=== PATIENT | male | born 1965 | race Caucasian/White ===

== ENCOUNTER 2023-04-22 10:26 | Emergency (ER) | payer OTHER ==
[2023-04-22 10:36] VITALS: BMI 28.1
[2023-04-22 11:28] LABS: HEMATOCRIT 41.4 % (35.4-49); HEMOGLOBIN 13.9 GM/dL (11.7-16.9); MCH 28.2 pg (25.7-33.7); MCHC 33.6 g/dl (32.0-35.9); MEAN CELL VOLUME 83.9 fl (80-96); MEAN PLT VOLUME 8.6 fl (7.5-11.1); PLATELET COUNT 346 10^3/uL (134-434); RBC 4.93 M/mm3 (4.00-5.60); RDW 14.8 % (11.9-15.9); WHITE BLOOD COUNT 9.7 K/mm3 (4.0-10.0)
[2023-04-22 11:53] LABS: POTASSIUM 3.7 mmol/L (3.5-5.1)
[2023-04-22 11:55] LABS: ALBUMIN 2.7 g/dl (3.4-5.0); BLOOD UREA NITROGEN 14.8 mg/dL (7-18); CALCIUM 9.2 mg/dL (8.5-10.1)
[2023-04-22 11:58] LABS: CREATININE 1.4 mg/dL (0.55-1.3)
[2023-04-22 12:00] LABS: BILIRUBIN,TOTAL 1.3 mg/dL (0.2-1); TOT PROT 7.1 g/dl (6.4-8.2)
[2023-04-22 15:49] VITALS: BP 120/75; PULSE 85; RESP 18; TEMP 98
== END 2023-04-22 15:49 | disposition home or self-care (01) ==
LOC: JER 10:26
DX: S80.12XA Contusion of left lower leg, initial encounter (principal); S80.11XA Contusion of right lower leg, initial encounter; M79.661 Pain in right lower leg; Y99.9 Unspecified external cause status
CPT/HCPCS: 36415; 71046-TC-FY; 80053; 82550; 84484; 85027; 87040; 93005; 93010; 93970-TC; 99285-25

== ENCOUNTER 2023-05-18 10:52 | Inpatient (IN) | payer OTHER, MEDICARE ==
[2023-05-18 11:10] VITALS: BMI 28.1
[2023-05-18] MEDS ORDERED: LACTATED RINGERS SOLUTION 1000 ML INFUS.BAG IV ONE (11:35)
[2023-05-18 12:38] LABS: BASO % 0.4 % (0-2.0); EOS % 0.2 % (0-4.5); HEMATOCRIT 27.2 % (35.4-49); HEMOGLOBIN 8.3 GM/dL (11.7-16.9); LYMPH % 10.5 % (8-40); MCH 27.8 pg (25.7-33.7); MCHC 30.4 g/dl (32.0-35.9); MEAN CELL VOLUME 91.4 fl (80-96); MEAN PLT VOLUME 9.1 fl (7.5-11.1); MONO % 3.2 % (3.8-10.2); NEUT % 85.7 % (42.8-82.8); PLATELET COUNT 302 10^3/uL (134-434); RBC 2.98 M/mm3 (4.00-5.60); RDW 21.1 % (11.9-15.9); WHITE BLOOD COUNT 11.5 K/mm3 (4.0-10.0)
[2023-05-18 12:48] LABS: VENOUS BASE EXCESS -7.4 mmol/L (-2-2); VENOUS O2 SATURATION 16.6 % (70-80); VENOUS PCO2 25.9 mmHg (38-52); VENOUS PH 7.407 (7.310-7.410)
[2023-05-18 12:51] LABS: INR 1.95 (0.83-1.09); PROTHROMBIN TIME (PATIENT) 22.5 SEC (9.7-13.0)
[2023-05-18 12:53] LABS: ACTIVATED PTT 29.2 SECONDS (25.2-36.5)
[2023-05-18 12:54] LABS: CHLORIDE 103 mmol/L (98-107); SODIUM 131 mmol/L (136-145)
[2023-05-18 12:56] LABS: BLOOD UREA NITROGEN 71.6 mg/dL (7-18); CALCIUM 8.4 mg/dL (8.5-10.1)
[2023-05-18 12:58] LABS: ALBUMIN 2.6 g/dl (3.4-5.0); ANION GAP 13 MMOL/L (8-16); CO2 15 mmol/L (21-32); GLUCOSE,RANDOM 122 mg/dL (74-106); MAGNESIUM 2.7 mg/dL (1.8-2.4)
[2023-05-18 12:59] LABS: LIPASE 151 U/L (73-393)
[2023-05-18 13:00] LABS: CREATININE 2.1 mg/dL (0.55-1.3); SGOT/AST 13 U/L (15-37); SGPT/ALT 9 U/L (13-61)
[2023-05-18 13:02] LABS: BILIRUBIN,TOTAL 2.3 mg/dL (0.2-1); TOT PROT 6.8 g/dl (6.4-8.2)
[2023-05-18 13:03] LABS: ALK PHOS 100 U/L (45-117); N-TERMINAL BNP 11623.7 pg/ml (5-125)
[2023-05-18 13:14] LABS: LACTIC ACID 2.8 mmol/L (0.4-2.0)
[2023-05-18 13:18] LABS: ANISOCYTOSIS 3+; MACROCYTOSIS 1+; TARGET CELLS 1+
[2023-05-18 14:00] LABS: BILIRUBIN,DIRECT 0.9 mg/dL (0.0-0.2)
[2023-05-18 14:07] LABS: LDH 263 U/L (87-246)
[2023-05-18 14:29] LABS: RETICULOCYTES 7.55 % (0.5-1.5)
[2023-05-18 14:35] LABS: IRON SERUM 52 ug/dL (50-175)
[2023-05-18 14:36] LABS: TOTAL IRON BINDING CAPACITY 302 ug/dL (250-450)
[2023-05-18 15:10] LABS: LACTIC ACID 4.9 mmol/L (0.4-2.0)
[2023-05-18] MEDS ORDERED: SODIUM CHLORIDE 1,000 ML IV SCH (15:45)
[2023-05-18] MEDS ORDERED: LACTATED RINGERS SOLUTION 1,000 ML/1,000 ML INFUS.BAG IV SCH ×2 (15:45→16:30)
[2023-05-18] MEDS ORDERED: PANTOPRAZOLE SODIUM 40 MG VIAL ONE (18:00)
[2023-05-18] MEDS: PANTOPRAZOLE SODIUM 40 MG VIAL IVPUSH SCH (18:03)
[2023-05-18 20:36] LABS: EPI CELLS 3 /uL (0-25.1); HYALINE CASTS 1 /uL (0-3.1); URINE APPEARANCE CLEAR; URINE BILIRUBIN 1+ (NEGATIVE); URINE COLOR DK YELLOW; URINE GLUCOSE (UA) NEGATIVE (NEGATIVE); URINE KETONE NEGATIVE (NEGATIVE); URINE LEUK ESTERASE TRACE (NEGATIVE); URINE NITRITE POSITIVE (NEGATIVE); URINE PROTEIN NEGATIVE (NEGATIVE); URINE RBC 26 /uL (0-23.9); URINE WBC 9 /uL (0-25.8)
[2023-05-18 20:48] LABS: BASO % 0.8 % (0-2.0); EOS % 0.4 % (0-4.5); HEMATOCRIT 21.8 % (35.4-49); LYMPH % 38.4 % (8-40); MCH 28.5 pg (25.7-33.7); MCHC 31.7 g/dl (32.0-35.9); MEAN PLT VOLUME 8.7 fl (7.5-11.1); MONO % 6.8 % (3.8-10.2); NEUT % 53.6 % (42.8-82.8); PLATELET COUNT 216 10^3/uL (134-434); RBC 2.42 M/mm3 (4.00-5.60); RDW 20.7 % (11.9-15.9); WHITE BLOOD COUNT 5.3 K/mm3 (4.0-10.0)
[2023-05-18 20:55] LABS: HEMOGLOBIN 6.9 GM/dL (11.7-16.9)
[2023-05-18 21:25] LABS: ANISOCYTOSIS 2+; HELMET CELLS 1+; MACROCYTOSIS 0; PLATELET ESTIMATE NORMAL
[2023-05-18 23:40] LABS: URINE BACTERIA 1 /uL (0-1359)
[2023-05-19 07:24] LABS: BASO % 0.6 % (0-2.0); EOS % 0.4 % (0-4.5); HEMATOCRIT 28.5 % (35.4-49); HEMOGLOBIN 9.1 GM/dL (11.7-16.9); LYMPH % 38.7 % (8-40); MCH 29.6 pg (25.7-33.7); MCHC 32.1 g/dl (32.0-35.9); MEAN CELL VOLUME 92.4 fl (80-96); MEAN PLT VOLUME 9.5 fl (7.5-11.1); MONO % 5.5 % (3.8-10.2); NEUT % 54.8 % (42.8-82.8); PLATELET COUNT 237 10^3/uL (134-434); RBC 3.09 M/mm3 (4.00-5.60); RDW 19.2 % (11.9-15.9); WHITE BLOOD COUNT 6.2 K/mm3 (4.0-10.0)
[2023-05-19 07:43] LABS: POTASSIUM 4.4 mmol/L (3.5-5.1)
[2023-05-19 07:45] LABS: CALCIUM 8.3 mg/dL (8.5-10.1)
[2023-05-19 07:46] LABS: MAGNESIUM 2.6 mg/dL (1.8-2.4)
[2023-05-19 07:47] LABS: ALBUMIN 2.4 g/dl (3.4-5.0); BLOOD UREA NITROGEN 70.7 mg/dL (7-18)
[2023-05-19 07:49] LABS: CREATININE 1.7 mg/dL (0.55-1.3)
[2023-05-19 07:51] LABS: BILIRUBIN,TOTAL 2.7 mg/dL (0.2-1); PHOSPHOROUS 3.7 mg/dL (2.5-4.9)
[2023-05-19] MEDS: PANTOPRAZOLE SODIUM 40 MG VIAL IVPUSH SCH (10:30)
[2023-05-19] MEDS: NICOTINE 21 MG/24 HOURS TOPICAL PATCH TD SCH ×2 (10:30)
[2023-05-19 13:28] VITALS: BP 99/64; PULSE 76; RESP 19; TEMP 98.2
[2023-05-20 19:07] LABS: ANTIGLOMERULAR BASEMENT MEN.AB <0.2 units (0.0-0.9)
[2023-05-21 15:09] LABS: ATYPICAL pANCA <1:20 titer (Neg:<1:20); C-ANCA <1:20 titer (Neg:<1:20)
== END 2023-05-19 13:30 | disposition left against medical advice (07) | DRG 812 ==
LOC: JER 10:52 → JERBED 13:19 → J4W 21:56
PROVIDERS: ADMIT Internal Medicine; ATTEND Internal Medicine
PROC: 30233N1 Transfusion of Nonautologous Red Blood Cells into Peripheral Vein, Percutaneous Approach (ICD-10-PCS; principal; 2023-05-18)
DX: D64.9 Anemia, unspecified (principal); E87.20 Acidosis, unspecified; N17.9 Acute kidney failure, unspecified; D68.9 Coagulation defect, unspecified; J44.9 Chronic obstructive pulmonary disease, unspecified; F17.210 Nicotine dependence, cigarettes, uncomplicated
CPT/HCPCS: 36415; 36430; 71045-TC-FY; 73700-TC-RT; 76775-TC; 80053; 80061; 80307; 81003; 82248; 82272; 82436; 82570; 82595; 82728; 82803; 82955; 83516; 83520; 83540; 83550; 83605; 83615; 83690; 83735; 83880; 84100; 84133; 84155; 84165; 84300; 84484; 85025; 85041; 85045; 85384; 85610; 85730; 86038; 86160; 86225; 86256; 86850; 86880; 86900; 86901; 86922; 87040; 87086; 87207; 87340; 87517; 87522; 93005; 93010; 93306-TC; 97116-GP; 97162-GP; 99285-25; P9058